=== PATIENT | female | born 1990 | race Caucasian/White ===

== ENCOUNTER 2021-07-22 08:47 | Emergency (ER) | payer OTHER, SELFPAY ==
--- NOTE | 2021-07-22 08:54 | ED.URI ---
HPI - URI/Sore Throat General Chief Complaint: Upper Respiratory Infection Stated Complaint: Sore Throat, headache Time Seen by Provider: 07/22/21 08:54 Source: patient and RN notes reviewed History of Present Illness HPI Narrative: Patient is a 30-year-old female who presents the urgent care with complaints of headache and sore throat that started Thursday. Patient denies of any exposure to strep or Covid. Patient has not been Covid vaccinated. Denies of any use of emik-ubb-zoxekzv medication for symptom relief. No other acute complaints. Denies fever, chills, nausea, vomiting. No acute distress noted. Patient aware of the plan of care. Some parts of this dictation were generated by voice recognition software and may contain typographical and/or grammatical inaccuracies. Related Data Home Medications Medication Instructions Recorded Confirmed No Home Medications 07/22/21 07/22/21 Allergies Allergy/AdvReac Type Severity Reaction Status Date / Time cefaclor [From [facility]] Allergy Unknown Verified 07/22/21 08:51 Review of Systems Review of Systems: CONSTITUTIONAL: Denies fever, chills, or sweats. EYES: Denies visual changes, redness, or discharge. ENT: Denies rhinorrhea, congestion, otalgia. Reports of sore throat CARDIOVASCULAR: Denies chest pain, palpitations, or edema. RESPIRATORY: Denies cough or dyspnea. GASTROINTESTINAL: Denies abdominal pain, nausea, vomiting, or diarrhea. GENITOURINARY: Denies dysuria or hematuria. SKIN: Denies rash or itching. MUSCULOSKELETAL: Denies back pain, joint pain, or myalgia. NEUROLOGIC: Reports of headache All other systems reviewed are negative, except as documented in HPI. PMFSH Comments At the time of my signature, I reviewed and agree with the nursing past medical, surgical, social, and family history. There is no relevant family history pertinent to the patient complaint. Exam Narrative: GENERAL: This is a well-nourished, well-developed patient, in no apparent distress. HEAD: normocephalic, atraumatic. EYES: PERRL. Sclera clear/white. Vision is grossly intact. EARS: External ears normal, auditory canals clear and without drainage, TMs normal without perforation. Hearing grossly intact. NOSE: External nose normal with no obvious nasal discharge, nares without redness, no rhinorrhea. THROAT: Mucous membranes moist, posterior pharynx clear. Mild postnasal drainage NECK: Neck supple, non-tender without lymphadenopathy, masses or thyromegaly. CARDIOVASCULAR: Regular rate and rhythm without murmurs, gallops, or rubs. RESPIRATORY: Clear to auscultation. Breath sounds equal bilaterally. No wheezes, rales, or rhonchi. SKIN: warm, intact with no suspicious lesions or rash, good texture and turgor. NEURO: awake, alert, and oriented to person, place and time. There were no obvious focal neurologic abnormalities. EXTREMITIES: No clubbing, cyanosis, or edema. Course Vital Signs Vital signs: Vital Signs Temperature 98.9 F 07/22/21 09:00 Pulse Rate 66 07/22/21 09:00 Respiratory Rate 16 07/22/21 09:00 Blood Pressure 117/74 07/22/21 09:00 Pulse Oximetry 100 07/22/21 09:00 Temperature 98.9 F 07/22/21 09:00 Pulse Rate 66 07/22/21 09:00 Respiratory Rate 16 07/22/21 09:00 Blood Pressure 117/74 07/22/21 09:00 Pulse Oximetry 100 07/22/21 09:00 Reviewed MDM - URI/Sore Throat MDM Narrative Medical decision making narrative: Reviewed lab results with the patient. Aware that strep swab was negative. Educated on culture we will call within 72 hours if culture is positive and antibiotics are necessary. Advised the patient to use gwrv-asp-xujaikn medication for symptom relief such as Claritin/Zyrtec in conjunction with Flonase nasal spray. Use Tylenol/ibuprofen as needed. Follow-up with the PCR Covid test at the [facility] site. They will call you with an appointment in the next 2 days. If you develop any increase in symptoms associated with chest pa
[2021-07-22 09:00] VITALS: BP 117/74; PULSE 66; RESP 16; TEMP 37.2; O2SAT 100
== END 2021-07-22 09:29 | disposition home or self-care (01) ==
PROVIDERS: Emergency Provider Nurse Practitioner Family; PCP Nurse Practitioner Family
DX: J02.9 Acute pharyngitis, unspecified (principal); Z20.822 Contact with and (suspected) exposure to COVID-19
CPT/HCPCS: 87081; 87880; 99213; G0463

== ENCOUNTER → 2021-07-23 03:19 | Outpatient (CLI) | payer OTHER, SELFPAY ==
[2021-07-23 20:47] LABS: SARS-CoV-2 RNA PCR Negative
== END ==
PROVIDERS: PCP Nurse Practitioner Family; Visit Provider Nurse Practitioner Family
DX: Z20.822 Contact with and (suspected) exposure to COVID-19 (principal)
CPT/HCPCS: C9803; U0003; U0005

== ENCOUNTER 2022-01-28 08:48 | Emergency (ER) | payer OTHER, SELFPAY ==
[2022-01-28 08:54] VITALS: BP 121/76; PULSE 69; RESP 20; TEMP 36.6; O2SAT 100
--- NOTE | 2022-01-28 09:10 | ED.DENTAL ---
HPI - Dental/Oral General Chief complaint: Dental/Oral Stated complaint: Toothache/Facial Swelling Time Seen by Provider: 01/28/22 09:10 Source: patient Mode of arrival: ambulatory Limitations: no limitations History of Present Illness HPI Narrative: 31-year-old female presented for complaint of left lower jaw pain for 1 week, and swelling started yesterday. States she has a crown at the site of pain. History of dental abscess in the past. She is scheduled with her dentist tomorrow. She has been taking Tylenol and ibuprofen rates pain 6 out of 10. Denies nausea, vomiting, fever or chills. MD Complaint: tooth pain Related Data Allergies Allergy/AdvReac Type Severity Reaction Status Date / Time cefaclor [From [facility]] Allergy Mild Unknown Verified 01/28/22 09:14 Review of Systems Review of Systems: CONSTITUTIONAL: Denies body aches, fever, chills ENT: Denies rhinorrhea, congestion, sore throat, or otalgia. Reports dental pain CARDIOVASCULAR: Denies chest pain, palpitations RESPIRATORY: Denies cough or dyspnea. SKIN: Denies rash, itching, or wounds. MUSCULOSKELETAL: Denies myalgia. NEUROLOGIC: Denies headache, numbness, tingling, or weakness. PMFSH Comments At time of signature, I have reviewed and agree with nursing past medical, surgical, social and family history unless otherwise noted. Please see nursing chart for further information. There is no relevant family history pertinent to the presenting complaint Exam Narrative: GENERAL: Appears in pain HEAD: Normocephalic, atraumatic. EYES: EOMI. No redness or drainage. Conjunctivae normal. ENT: Left lower jaw swelling, tender with palpation, no dental abscess or gum swelling noted on exam.Mucous membranes pink and moist. right TM unable to visualize due to cerumen, left TM normal. Throat normal. Uvula midline. NECK: Normal AROM. Supple. No lymphadenopathy. CHEST: No respiratory distress. Clear to auscultation. HEART: Regular rate and rhythm. No murmur appreciated. ABDOMEN: Soft, nontender, nondistended, normal active bowel sounds. SKIN: Warm, dry, no rash. Normal skin turgor. NEURO: No focal deficits. Alert and oriented x3. Gait steady. Course Course Emergency Course: Patient is aware of diagnosis, understands and agrees to treatment plan. Anticipatory guidance given. Patient agrees to follow-up as directed and is aware of reasons to seek care at the emergency department. Portions of this record may have been created with voice recognition software Level of Care: Express Care Visit Vital Signs Vital signs: Vital Signs Temperature 97.9 F 01/28/22 08:54 Pulse Rate 69 01/28/22 08:54 Respiratory Rate 20 01/28/22 08:54 Blood Pressure 121/76 01/28/22 08:54 Pulse Oximetry 100 01/28/22 08:54 Temperature 97.9 F 01/28/22 08:54 Pulse Rate 69 01/28/22 08:54 Respiratory Rate 20 01/28/22 08:54 Blood Pressure 121/76 01/28/22 08:54 Pulse Oximetry 100 01/28/22 08:54 MDM - Dental/Oral MDM Narrative Medical decision making narrative: Patients pain and complaint coupled with physical findings are consistent with dentalgia/ dental abscess There are no focal signs of space occupying lesions that are compromising to the airway; no dysphagia, odynophagia, dysphonia, or dyspnea. No uvular deviation or soft palate edema. Patient is non-toxic appearing. The floor of the mouth is soft with no signs of Willard's Angina; no induration below mandible, no neck pain. Patient is without trismus or drooling and able to swallow secretions. Patient is felt appropriate for discharge home with dental follow up. Differential Diagnosis Differential diagnosis: Likely dental caries, toothache and dental abscess Discharge Plan Discharge Clinical Impression: Toothache Patient Disposition: Home, Self-Care Condition: Stable Instructions: Antibiotic Form, Dental Abscess (ED) Additional Instructions: Take antibiotic as directed May apply heat or
== END 2022-01-28 09:20 | disposition home or self-care (01) ==
PROVIDERS: Emergency Provider Nurse Practitioner Family; PCP Nurse Practitioner Family
DX: K08.89 Other specified disorders of teeth and supporting structures (principal)
CPT/HCPCS: 99213; G0463